=== PATIENT | male | born 2000 | race Caucasian/White ===

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

== ENCOUNTER 2019-11-14 20:37 | Emergency (ER) | payer MEDICAID ==
--- NOTE | 2019-11-14 20:58 | ER Document Report ---
ED Medical Screen (RME) - General Chief Complaint: Dizziness Stated Complaint: DIZZINESS Time Seen by Provider: 11/14/19 20:54 Primary Care Provider: MERI THOMAS MD [Primary Care Provider] - Follow up as needed Mode of Arrival: Medic Information source: Patient Notes: 18-year-old male presented to ED after he was very dizzy [place] the [place]. He states he got very dizzy lightheaded and was getting worse and worse and they EMS came and brought him to the emergency room. He states while he was in the emergency room he did have a syncopal episode and the EMS kept him back up in the chair. He states the EMS person told member that he had passed out and the staff member told the EMS that he was probably just tired. Patient is alert and oriented at this time. He states he is extremely fatigued he is continues to be very dizzy. He denies any nausea or vomiting anything else going on at all. He states he does have a history of hypoglycemia but the EMS checked his blood sugar on the way here and it was 96. I have greeted and performed a rapid initial assessment of this patient. A comprehensive ED assessment and evaluation of the patient, analysis of test results and completion of medical decision making process will be conducted by an additional ED providers. TRAVEL OUTSIDE OF THE [place] IN LAST 30 DAYS: No - Related Data Allergies/Adverse Reactions: No Known Allergies Allergy (Verified 08/18/15 16:47) Past Medical History Neurological Medical History: Reports: Hx Migraine Renal/ Medical History: Denies: Hx Peritoneal Dialysis - Immunizations Immunizations up to date: Yes Hx Diphtheria, Pertussis, Tetanus Vaccination: Yes Physical Exam - Vital signs Vitals: Temp Pulse Resp BP Pulse Ox 98.0 F 92 H 16 116/81 99 11/14/19 20:49 11/14/19 20:49 11/14/19 20:49 11/14/19 20:49 11/14/19 20:49 Course - Vital Signs Vital signs: Temp Pulse Resp BP Pulse Ox 98.0 F 92 H 16 116/81 99 11/14/19 20:49 11/14/19 20:49 11/14/19 20:49 11/14/19 20:49 11/14/19 20:49 Doctor's Discharge - Discharge Referrals: MERI THOMAS MD [Primary Care Provider] - Follow up as needed
[2019-11-14 21:58] LABS: ABSOLUTE EOSINOPHILS # (AUTO) 0.1 10^3/uL (0.0-0.6); ABSOLUTE LYMPHOCYTES (AUTO) 2.7 10^3/uL (0.5-4.7); ABSOLUTE MONOCYTES (AUTO) 0.6 10^3/uL (0.1-1.4); BASOPHILS % (AUTO) 0.5 % (0-2); EOSINOPHILS % (AUTO) 1.5 % (0-6); HEMATOCRIT 46.4 % (37.9-51.0); HEMOGLOBIN 16.3 g/dL (13.5-17.0); LYMPHOCYTES % (AUTO) 35.8 % (13-45); MEAN CORPUSCULAR HEMOGLOBIN 30.7 pg (27.0-33.4); MEAN CORPUSCULAR VOLUME 88 fl (80-97); MONOCYTES % (AUTO) 8.5 % (3-13); PLATELET COUNT 274 10^3/uL (150-450); RED BLOOD COUNT 5.29 10^6/uL (4.35-5.55); SEGMENTED NEUTROPHILS % (AUTO) 53.7 % (42-78); TOTAL CELLS COUNTED % (AUTO) 100 %; WHITE BLOOD COUNT 7.5 10^3/uL (4.0-10.5)
[2019-11-14 22:05] LABS: APPEARANCE,URINE CLEAR; BILIRUBIN,URINE NEGATIVE (NEGATIVE); COLOR,URINE YELLOW; GLUCOSE, URINE NEGATIVE (NEGATIVE); KETONES,URINE TRACE mg/dL (NEGATIVE); PROTEIN,URINE 30 mg/dL (NEGATIVE); URINE SPECIFIC GRAVITY 1.029; UROBILINOGEN,URINE NEGATIVE mg/dL (<2.0)
[2019-11-14 22:17] LABS: ALBUMIN 4.9 g/dL (3.7-5.6); ALKALINE PHOSPHATASE 102 U/L (65-260); ANION GAP 15 (5-19); ASPARTATE AMINO TRANSFERASE 46 U/L (10-45); BILIRUBIN,DIRECT 0.3 mg/dL (0.0-0.4); BILIRUBIN,TOTAL 0.4 mg/dL (0.2-1.3); BLOOD UREA NITROGEN 14 mg/dL (7-20); CALCIUM 10.1 mg/dL (8.4-10.2); CARBON DIOXIDE 27 mmol/L (22-30); CHLORIDE 99 mmol/L (98-107); GLUCOSE 105 mg/dL (75-110); POTASSIUM 4.1 mmol/L (3.6-5.0); TOTAL PROTEIN 8.3 g/dL (6.3-8.2)
[2019-11-15 01:45] VITALS: BP 125/77
[2019-11-15] MEDS ORDERED: MECLIZINE HCL 25 MG TABLET PO ONE (02:12)
--- NOTE | 2019-11-15 02:19 | ER Document Report ---
ED Dizziness/Weakness - General Chief Complaint: Dizziness Stated Complaint: DIZZINESS Time Seen by Provider: 11/14/19 20:54 Primary Care Provider: MERI THOMAS MD [ACTIVE STAFF] - Follow up as needed Mode of Arrival: Medic Information source: Patient TRAVEL OUTSIDE OF THE [place] IN LAST 30 DAYS: No - HPI Patient complains to provider of: Dizziness, Near-syncope Onset: Just prior to arrival Onset/Duration: Gradual Severity: Mild Pain Level: 0 Associated symptoms: Lightheaded, Vertigo Exacerbated by: Change in position Baseline gait: Walks w/o assistance - Related Data Allergies/Adverse Reactions: No Known Allergies Allergy (Verified 08/18/15 16:47) Home Medications: Cymbalta 20mg QD Past Medical History - General Information source: Patient - Social History Smoking Status: Never Smoker Frequency of alcohol use: None Drug Abuse: None Lives with: Friend Family History: Reviewed & Not Pertinent Patient has suicidal ideation: No Patient has homicidal ideation: No - Medical History Medical History: Other - This is a totally different 1erl yes that Erlos Danlos syndrome Neurological Medical History: Reports: Hx Migraine Renal/ Medical History: Denies: Hx Peritoneal Dialysis - Immunizations Immunizations up to date: Yes Hx Diphtheria, Pertussis, Tetanus Vaccination: Yes Review of Systems - Review of Systems Constitutional: Malaise EENT: Vertigo Cardiovascular: No symptoms reported Physical Exam - Vital signs Vitals: Temp Pulse Resp BP Pulse Ox 98.0 F 92 H 16 116/81 99 11/14/19 20:49 11/14/19 20:49 11/14/19 20:49 11/14/19 20:49 11/14/19 20:49 Interpretation: Normal - General General appearance: Appears well, Alert - HEENT Head: Normocephalic, Atraumatic Eyes: Normal Pupils: PERRL Tympanic membrane: Bulging, Serous effusion Sinus: Normal Nasal: Normal Pharynx: Erythema - Respiratory Respiratory status: No respiratory distress Chest status: Nontender Breath sounds: Normal Chest palpation: Normal - Cardiovascular Rhythm: Regular Heart sounds: Normal auscultation Murmur: No - Abdominal Inspection: Normal Distension: No distension Bowel sounds: Normal Tenderness: Nontender Organomegaly: No organomegaly - Back Back: Normal, Nontender - Extremities General upper extremity: Normal inspection, Nontender, Normal color, Normal ROM, Normal temperature General lower extremity: Normal inspection, Nontender, Normal color, Normal ROM, Normal temperature, Normal weight bearing. No: Laine's sign - Neurological Neuro grossly intact: Yes Cognition: Normal Orientation: AAOx4 [place] Coma Scale Eye Opening: Spontaneous Salv[place] Coma Scale Verbal: Oriented [place] Coma Scale Motor: Obeys Commands [place] Coma Scale Total: 15 Speech: Normal Motor strength normal: LUE, RUE, LLE, RLE Sensory: Normal - Psychological Associated symptoms: Normal affect, Normal mood - Skin Skin Temperature: Warm Skin Moisture: Dry Skin Color: Normal Course - Vital Signs Vital signs: Temp Pulse Resp BP Pulse Ox 98 F 72 18 125/77 96 11/15/19 01:43 11/15/19 01:43 11/15/19 01:43 11/15/19 01:43 11/15/19 01:43 - Laboratory Result Diagrams: 11/14/19 21:35 11/14/19 21:35 Laboratory results interpreted by me: 11/14/19 11/14/19 21:35 21:35 AST 46 H Total Protein 8.3 H Urine Protein 30 H Urine Ketones TRACE H Urine Ascorbic Acid 40 H Discharge - Discharge Clinical Impression: Acute viral labyrinthitis of both ears Condition: Stable Disposition: HOME, SELF-CARE Instructions: Labyrinthitis ([facility]), Meclizine ([facility]) Prescriptions: Meclizine HCl [Antivert 25 mg Tablet] 25 mg PO TID PRN #21 tablet PRN Reason: Forms: Return to Work Referrals: MERI THOMAS MD [ACTIVE STAFF] - Follow up as needed
== END 2019-11-15 02:27 | disposition home or self-care (01) ==
LOC: ER 20:37
DX: H83.03 Labyrinthitis, bilateral (principal); B97.89 Other viral agents as the cause of diseases classified elsewhere; R42 Dizziness and giddiness; R53.81 Other malaise; Z79.899 Other long term (current) drug therapy
CPT/HCPCS: 36415; 80053; 81001; 85025; 99284